=== PATIENT | female | born 1990 | race Caucasian/White ===

== ENCOUNTER 2020-07-09 11:18 | Emergency (ER) | payer OTHER ==
[~2020-07-09] VITALS: Ht 165.1 cm; Wt 72.6 kg
[2020-07-09] MEDS ORDERED: PRENATAL (11:27)
[2020-07-09 11:47] LABS: ABSOLUTE EOSINOPHILS 0.1 thou/uL (0.0-0.7); ABSOLUTE LYMPHOCYTES 1.7 thou/uL (0.8-5.3); ABSOLUTE MONOCYTES 0.2 thou/uL (0.0-1.2); ABSOLUTE NEUTROPHILS 3.6 thou/uL (1.6-8.1); BASOPHILS 0.5 %; EOSINOPHILS 0.9 %; HEMATOCRIT 38.6 % (37.0-47.0); LYMPHOCYTES 30.2 %; MCH 28.8 pg (26.0-34.0); MCHC 33.8 g/dL (28.0-37.0); MCV 85.4 fL (80.0-100.0); MONOCYTES 4.1 %; MPV 7.8 fl. (7.2-11.1); NUCLEATED RBCS 0 /100WBC; PLATELET COUNT* 306 thou/uL (150-400); POLYS 64.3 %; RBC 4.52 mil/uL (4.20-5.00); RDW-CV 13.5 % (10.5-14.5); WBC 5.7 thou/uL (4.0-11.0)
[2020-07-09 11:57] LABS: ANION GAP 8 mmol/L (7-16); BUN 12 mg/dL (7-18); CALCIUM 8.8 mg/dL (8.5-10.1); CHLORIDE 106 mmol/L (98-107); CO2 27 mmol/L (21-32); CREATININE 0.7 mg/dL (0.6-1.3); GLUCOSE 90 mg/dL (70-99); SODIUM 141 mmol/L (136-145)
[2020-07-09 11:59] LABS: APTT 25.7 Seconds (25.0-31.3); PROTIME 10.9 Seconds (9.20-11.50)
[2020-07-09 12:10] LABS: ALBUMIN 4.1 g/dL (3.4-5.0); ALKALINE PHOSPHATASE 116 U/L (46-116); CK-MB MASS < 0.5 ng/mL (<0.5-3.6); LIPASE 96 U/L (73-393); NT-PRO BRAIN NAT PEPTIDE 69 pg/mL (<300); SGOT 12 U/L (15-37); SGPT 23 U/L (30-65); TOTAL BILIRUBIN 0.4 mg/dL (<0.1-1.0); TOTAL PROTEIN 7.6 g/dL (6.4-8.2)
[2020-07-09 13:04] VITALS: BP 145/80
--- NOTE | 2020-07-09 14:42 | EKG ---
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
== END 2020-07-09 13:04 | disposition home or self-care (01) ==
LOC: M.ERS 11:18
PROVIDERS: Family Medicine
DX: R07.89 Other chest pain (principal)